=== PATIENT | female | born 1990 | race Caucasian/White ===

== ENCOUNTER 2023-01-01 11:20 | Emergency (ER) | payer SELFPAY ==
[~2023-01-01] VITALS: Ht 162.6 cm; Wt 79.0 kg
[2023-01-01 12:07] VITALS: BP 117/70; PULSE 72; RESP 18; TEMP 98.3; O2SAT 100
[2023-01-01] MEDS ORDERED: IBUP-2029 MT (15:14)
== END 2023-01-01 15:21 | disposition home or self-care (01) ==
LOC: ER 11:20
DX: M79.604 Pain in right leg (principal)
CPT/HCPCS: 73610; 73630; 81025; 99284